=== PATIENT | male | born 1955 | race Caucasian/White ===

== ENCOUNTER 2021-07-06 10:00 | Emergency (ER) | payer MEDICARE ==
[~2021-07-06] VITALS: Ht 170.2 cm; Wt 64.4 kg
--- NOTE | 2021-07-06 10:20 | NUR ---
PT AMBULATED TO BR WITH SLIGHT LIMP D/T L THIGH PAIN.
--- NOTE | 2021-07-06 10:28 | NUR ---
CATINA MCARTHUR AT .
--- NOTE | 2021-07-06 10:50 | NUR ---
US AT BS.
[2021-07-06] MEDS ORDERED: CYCLOBENZAPRINE 10 MG TABLET PO ONE (11:00)
[2021-07-06] MEDS ORDERED: ACETAMINOPHEN 500 MG TABLET PO ONE (11:00)
[2021-07-06] MEDS ORDERED: ACETAMINOPHEN 500 MG TABLET ONE (11:43)
[2021-07-06] MEDS ORDERED: CYCLOBENZAPRINE 10 MG TABLET ONE (11:43)
--- NOTE | 2021-07-06 11:44 | NUR ---
PT TO IMAGING VIA [employer].
--- NOTE | 2021-07-06 11:53 | NUR ---
PT RETURNS FROM IMAGING.
[2021-07-06 12:17] VITALS: BP 120/75
--- NOTE | 2021-07-06 12:41 | NUR ---
Patient given discharge instructions and they have confirmed that they understand the instructions. Patient ambulatory with steady gait. NAD, all questions answered appropriately, denies additional needs at this time. No personal belongings left in room after discharge.
== END 2021-07-06 12:42 | disposition home or self-care (01) ==
LOC: ED 12:25
DX: M54.32 Sciatica, left side (principal); I10 Essential (primary) hypertension; E11.9 Type 2 diabetes mellitus without complications; I25.2 Old myocardial infarction; E78.5 Hyperlipidemia, unspecified; Z90.89 Acquired absence of other organs
CPT/HCPCS: 72110; 99284